=== PATIENT | male | born 1965 | race Caucasian/White ===

== ENCOUNTER 2021-05-24 13:13 | Inpatient (IN) | payer MEDICAID, OTHER ==
[~2021-05-24] VITALS: Ht 175.3 cm; Wt 88.9 kg
[~2021-05-24 13:13] MED LIST: HTN MEDS
[2021-05-24] MEDS ORDERED: KETOROLAC 30MG/ML VIAL IV STA (14:56)
[2021-05-24] MEDS ORDERED: DIPHENHYDRAMINE 50MG/ML VIAL IV ONE (15:00)
[2021-05-24] MEDS ORDERED: SODIUM CHLORIDE 0.9% 1,000 ML IV ONE (15:00)
[2021-05-24 15:14] LABS: CHLORIDE 106 mEq/L (98-107)
[2021-05-24 15:17] LABS: BASOPHILS % 0.9 % (0.0-2.0); HEMATOCRIT. 45.3 % (42.0-52.0); HEMOGLOBIN. 14.9 g/dL (14.0-18.0); LYMPHOCYTES % 25.1 % (20.0-50.0); MEAN CORPUSCULAR HEMOGLOBIN 29.5 pg (28.0-32.0); MEAN CORPUSCULAR VOLUME 89.3 fL (80.0-94.0); PLATELET 350 x1000/uL (130-400); RED BLOOD CELL COUNT 5.07 mill/uL (4.7-6.1); RED CELL DISTRIBUTION WIDTH 15.1 % (11.6-14.6)
[2021-05-24] MEDS ORDERED: HYDROCODONE/ACETAMINOPHEN 10/325MG TABLET PO ONE (17:00)
[2021-05-24] MEDS ORDERED: ASPIRIN 81MG TABLET PO ONE (20:45)
[2021-05-24] MEDS ORDERED: IPRATROPIUM/ALBUTEROL 0.5-3(2.5)MG/3ML NEB NEB PRN (21:00)
[2021-05-24] MEDS ORDERED: NITROGLYCERIN 0.4MG TABLET SL SL PRN (21:00)
[2021-05-24] MEDS ORDERED: MAGNESIUM/ALUMINUM HYDROXIDE/SIMETHICONE 30ML UDC PO PRN (21:00)
[2021-05-24] MEDS ORDERED: ACETAMINOPHEN 325MG TABLET PO PRN (21:00)
[2021-05-24] MEDS ORDERED: DOCUSATE SODIUM 100MG CAPSULE PO PRN (21:00)
[2021-05-24] MEDS ORDERED: ONDANSETRON HCL 4MG/2ML INJ IV PRN (21:00)
[2021-05-24] MEDS ORDERED: GUAIFENESIN 200MG/10ML SUGAR FREE UDC PO PRN (21:00)
[2021-05-24 21:17] LABS: ETHANOL BLOOD < 10 mg/dL
[2021-05-24 21:18] LABS: TOTAL IRON BINDING CAPACITY 319 ug/dL (250-450)
[2021-05-24 21:19] LABS: LDL CHOLESTEROL 118 mg/dL (5-100)
[2021-05-24 21:21] LABS: HDL CHOLESTEROL 39 mg/dL (40-59)
[2021-05-24] MEDS: ENOXAPARIN 40MG/0.4ML SYR SUBCUT SCH (21:33)
[2021-05-24] MEDS: FAMOTIDINE 20MG TABLET PO SCH (21:33)
[2021-05-24] MEDS: KETOROLAC 15MG/ML VIAL IV PRN (21:34)
[2021-05-24] MEDS: CLONIDINE 0.1MG TABLET PO PRN ×2 (21:34→23:17)
[2021-05-24 23:00] VITALS: BP 141/105
[2021-05-24] MEDS: ZOLPIDEM TARTRATE 5MG TABLET PO PRN (23:18)
[2021-05-24 23:46] VITALS: BP 161/89
[2021-05-25] VITALS: BP 138/77
[2021-05-25] MEDS ORDERED: KEPP500 MT (00:19)
[2021-05-25] MEDS ORDERED: AMLO10TA80 MT (00:20)
[2021-05-25 00:42] LABS: CREATINE KINASE 51 IU/L (39-308)
[2021-05-25 00:43] LABS: CREATINE KINASE MB FRACTION < 1.0 ng/mL (0.5-3.6)
[2021-05-25 04:00] VITALS: BP 135/84
[2021-05-25] MEDS: KETOROLAC 15MG/ML VIAL IV PRN ×3 (04:53→20:21)
[2021-05-25 07:17] LABS: BASOPHILS % 0.8 % (0.0-2.0); EOSINOPHILS % 1.8 % (0.0-5.0); HEMATOCRIT. 42.3 % (42.0-52.0); HEMOGLOBIN. 13.9 g/dL (14.0-18.0); LYMPHOCYTES % 39.9 % (20.0-50.0); MEAN CORPUSCULAR HEMOGLOBIN 29.6 pg (28.0-32.0); MEAN CORPUSCULAR VOLUME 89.9 fL (80.0-94.0); MEAN PLATELET VOLUME 7.8 fl (7.4-10.4); MONOCYTES % 11.4 % (2.0-8.0); NEUTROPHILS % 46.1 % (40.0-76.0); PLATELET 298 x1000/uL (130-400); RED CELL DISTRIBUTION WIDTH 14.8 % (11.6-14.6)
[2021-05-25 07:49] LABS: CHLORIDE 107 mEq/L (98-107)
[2021-05-25 07:56] LABS: PHOSPHORUS 4.3 mg/dL (2.5-4.9)
[2021-05-25 07:58] LABS: CREATINE KINASE 59 IU/L (39-308)
[2021-05-25 08:00] VITALS: BP 160/107
[2021-05-25 08:01] LABS: CREATINE KINASE MB FRACTION < 1.0 ng/mL (0.5-3.6)
[2021-05-25] MEDS: AMLODIPINE 10MG TABLET PO SCH (08:22)
[2021-05-25] MEDS: LEVETIRACETAM 500MG TABLET PO SCH ×2 (08:22→20:04)
[2021-05-25] MEDS: CLONIDINE 0.1MG TABLET PO PRN (08:22)
[2021-05-25] MEDS: FAMOTIDINE 20MG TABLET PO SCH ×2 (08:22→20:04)
[2021-05-25] MEDS ORDERED: ASPIRIN 325MG EC TABLET PO SCH (09:00)
[2021-05-25] MEDS ORDERED: NITROGLYCERIN SPRAY/4.9GM CAN TL ONE (11:15)
[2021-05-25 12:00] VITALS: BP 143/83
[2021-05-25] MEDS: CLOPIDOGREL 75MG TABLET PO SCH (14:20)
[2021-05-25] MEDS: ISOSORBIDE MONONITRATE 30MG TABLET SR 24HR PO SCH (15:32)
[2021-05-25 16:08] VITALS: BP 121/75
[2021-05-25] MEDS ORDERED: IOHEXOL-350 100 ML BOTTLE ONE (17:26)
[2021-05-25] MEDS: ACETAMINOPHEN 325MG TABLET PO PRN (18:11)
[2021-05-25 20:00] VITALS: BP 119/75
[2021-05-25] MEDS: ATORVASTATIN CALCIUM 40MG TABLET PO SCH (20:04)
[2021-05-25] MEDS: ENOXAPARIN 40MG/0.4ML SYR SUBCUT SCH (20:05)
[2021-05-26] VITALS: BP 113/71
[2021-05-26 04:00] VITALS: BP 110/63
[2021-05-26] MEDS: KETOROLAC 15MG/ML VIAL IV PRN (04:47)
[2021-05-26 08:00] VITALS: BP 108/75
[2021-05-26] MEDS: AMLODIPINE 10MG TABLET PO SCH (09:00)
[2021-05-26] MEDS: ISOSORBIDE MONONITRATE 30MG TABLET SR 24HR PO SCH (09:00)
[2021-05-26] MEDS: ACETAMINOPHEN 325MG TABLET PO PRN (09:30)
[2021-05-26] MEDS: FAMOTIDINE 20MG TABLET PO SCH ×2 (09:30→20:52)
[2021-05-26] MEDS: CLOPIDOGREL 75MG TABLET PO SCH (09:30)
[2021-05-26] MEDS: ASPIRIN 81MG EC TABLET PO SCH (09:30)
[2021-05-26] MEDS: LEVETIRACETAM 500MG TABLET PO SCH ×2 (09:30→20:52)
[2021-05-26 12:00] VITALS: BP 131/65
[2021-05-26] MEDS: BUTALBITAL/ACETAMINOPHEN/CAFFEINE 50/325/40MG TABLET PO PRN ×2 (13:07→20:52)
[2021-05-26 16:00] VITALS: BP 131/75
[2021-05-26 20:00] VITALS: BP 165/92
[2021-05-26] MEDS: ZOLPIDEM TARTRATE 5MG TABLET PO PRN (20:52)
[2021-05-26] MEDS: CLONIDINE 0.1MG TABLET PO PRN (20:52)
[2021-05-26] MEDS: ATORVASTATIN CALCIUM 40MG TABLET PO SCH (20:52)
[2021-05-26] MEDS: ENOXAPARIN 40MG/0.4ML SYR SUBCUT SCH (22:38)
[2021-05-27] VITALS: BP 126/84
[2021-05-27 04:00] VITALS: BP 140/81
[2021-05-27 08:00] VITALS: BP 144/77
[2021-05-27] MEDS: ASPIRIN 81MG EC TABLET PO SCH (09:01)
[2021-05-27] MEDS: FAMOTIDINE 20MG TABLET PO SCH ×2 (09:01→20:38)
[2021-05-27] MEDS: LEVETIRACETAM 500MG TABLET PO SCH ×2 (09:02→20:38)
[2021-05-27] MEDS: ISOSORBIDE MONONITRATE 30MG TABLET SR 24HR PO SCH (09:02)
[2021-05-27] MEDS: AMLODIPINE 10MG TABLET PO SCH (09:03)
[2021-05-27] MEDS: CLOPIDOGREL 75MG TABLET PO SCH (09:03)
[2021-05-27] MEDS: KETOROLAC 15MG/ML VIAL IV PRN ×2 (09:07→20:39)
[2021-05-27] MEDS: BUTALBITAL/ACETAMINOPHEN/CAFFEINE 50/325/40MG TABLET PO PRN ×2 (09:29→16:47)
[2021-05-27 12:00] VITALS: BP 138/75
[2021-05-27 16:00] VITALS: BP 93/64
[2021-05-27 20:00] VITALS: BP 124/82
[2021-05-27] MEDS: ATORVASTATIN CALCIUM 40MG TABLET PO SCH (20:38)
[2021-05-27] MEDS: ENOXAPARIN 30MG/0.3ML SYR SUBCUT SCH (20:38)
[2021-05-28] VITALS (11 sets, daily range): BP systolic 116–178; BP diastolic 58–91
[2021-05-28] MEDS ORDERED: HEPARIN SODIUM 1,000 UNIT/1ML VIAL IV ONE (08:35)
[2021-05-28] MEDS ORDERED: NICARDIPINE 100MCG/ML 10ML VIAL (CATH LAB) IV ONE (08:35)
[2021-05-28] MEDS ORDERED: NITROGLYCERIN 50MCG/ML 10ML VIAL (CATH LAB) IV ONE (08:35)
[2021-05-28] MEDS: ENOXAPARIN 30MG/0.3ML SYR SUBCUT SCH ×2 (09:00→20:37)
[2021-05-28] MEDS: ASPIRIN 81MG EC TABLET PO SCH (09:28)
[2021-05-28] MEDS: CLOPIDOGREL 75MG TABLET PO SCH (09:28)
[2021-05-28] MEDS: LEVETIRACETAM 500MG TABLET PO SCH ×2 (09:28→20:36)
[2021-05-28] MEDS: AMLODIPINE 10MG TABLET PO SCH (09:29)
[2021-05-28] MEDS: FAMOTIDINE 20MG TABLET PO SCH ×2 (09:30→20:36)
[2021-05-28] MEDS: ISOSORBIDE MONONITRATE 30MG TABLET SR 24HR PO SCH (09:30)
[2021-05-28] MEDS: KETOROLAC 15MG/ML VIAL IV PRN ×2 (09:33→16:30)
[2021-05-28] MEDS: BUTALBITAL/ACETAMINOPHEN/CAFFEINE 50/325/40MG TABLET PO PRN ×2 (09:43→18:19)
[2021-05-28] MEDS ORDERED: VERAPAMIL HCL 2.5 MG/1 ML 2ML VIAL IV ONE (10:31)
[2021-05-28] MEDS ORDERED: LIDOCAINE HCL 1% 30ML VIAL (10MG/ML) ONE (10:31)
[2021-05-28] MEDS ORDERED: IODIXANOL 320MG/ML 100 ML BOTTLE IV ONE (10:31)
[2021-05-28] MEDS ORDERED: MIDAZOLAM HCL 2 MG/2 ML VIAL ONE (10:42)
[2021-05-28] MEDS ORDERED: FENTANYL CITRATE/PF 50MCG/ML 2ML VIAL ONE (10:42)
[2021-05-28] MEDS ORDERED: IOHEXOL-300 100 ML BOTTLE ONE (11:27)
[2021-05-28] MEDS ORDERED: CLOPIDOGREL 75MG TABLET ONE (11:48)
[2021-05-28] MEDS ORDERED: ACETAMINOPHEN 325MG TABLET PO PRN (12:30)
[2021-05-28] MEDS ORDERED: ATROPINE SULFATE 1MG/10ML SYR IV PRN (12:30)
[2021-05-28] MEDS: SODIUM CHLORIDE 0.45% 250 ML IV SCH ×2 (13:00→15:00)
[2021-05-28] MEDS: ATORVASTATIN CALCIUM 40MG TABLET PO SCH (20:36)
[2021-05-29] VITALS (8 sets, daily range): BP systolic 110–153; BP diastolic 62–97
[2021-05-29] MEDS: BUTALBITAL/ACETAMINOPHEN/CAFFEINE 50/325/40MG TABLET PO PRN (01:04)
[2021-05-29] MEDS: KETOROLAC 15MG/ML VIAL IV PRN (03:21)
[2021-05-29 07:06] LABS: BASOPHILS % 0.8 % (0.0-2.0); EOSINOPHILS % 1.9 % (0.0-5.0); HEMATOCRIT. 42.8 % (42.0-52.0); HEMOGLOBIN. 14.4 g/dL (14.0-18.0); LYMPHOCYTES % 27.3 % (20.0-50.0); MEAN CORPUSCULAR HEMOGLOBIN 29.7 pg (28.0-32.0); MEAN CORPUSCULAR VOLUME 88.3 fL (80.0-94.0); MEAN PLATELET VOLUME 7.9 fl (7.4-10.4); MONOCYTES % 12.7 % (2.0-8.0); NEUTROPHILS % 57.3 % (40.0-76.0); PLATELET 319 x1000/uL (130-400); RED BLOOD CELL COUNT 4.85 mill/uL (4.7-6.1); RED CELL DISTRIBUTION WIDTH 14.6 % (11.6-14.6)
[2021-05-29 07:51] LABS: CHLORIDE 107 mEq/L (98-107)
[2021-05-29] MEDS: ASPIRIN 81MG EC TABLET PO SCH (08:24)
[2021-05-29] MEDS: FAMOTIDINE 20MG TABLET PO SCH (08:24)
[2021-05-29] MEDS: CLOPIDOGREL 75MG TABLET PO SCH (08:24)
[2021-05-29] MEDS: ENOXAPARIN 30MG/0.3ML SYR SUBCUT SCH (08:24)
[2021-05-29] MEDS: LEVETIRACETAM 500MG TABLET PO SCH (08:24)
[2021-05-29] MEDS: AMLODIPINE 10MG TABLET PO SCH (08:24)
[2021-05-29] MEDS: ISOSORBIDE MONONITRATE 30MG TABLET SR 24HR PO SCH (08:26)
== END 2021-05-29 10:45 | disposition home or self-care (01) | DRG 175 ==
LOC: ER 13:13 → 7EST 20:38 → ENRESERV 20:52 → 3WST 05-28 12:05
PROVIDERS: ADMIT Internal Medicine; ATTEND Internal Medicine
PROC: 02703ZZ Dilation of Coronary Artery, One Artery, Percutaneous Approach (ICD-10-PCS; principal; 2021-05-28)
PROC: 4A023N7 Measurement of Cardiac Sampling and Pressure, Left Heart, Percutaneous Approach (ICD-10-PCS; 2021-05-28)
PROC: B211YZZ Fluoroscopy of Multiple Coronary Arteries using Other Contrast (ICD-10-PCS; 2021-05-28)
DX: I25.110 Atherosclerotic heart disease of native coronary artery with unstable angina pectoris (principal); I69.954 Hemiplegia and hemiparesis following unspecified cerebrovascular disease affecting left non-dominant side; E78.5 Hyperlipidemia, unspecified; G40.909 Epilepsy, unspecified, not intractable, without status epilepticus; I10 Essential (primary) hypertension; Z20.822 Contact with and (suspected) exposure to COVID-19; J44.9 Chronic obstructive pulmonary disease, unspecified; Z95.5 Presence of coronary angioplasty implant and graft; Z79.899 Other long term (current) drug therapy; R00.1 Bradycardia, unspecified; R42 Dizziness and giddiness
CPT/HCPCS: 36415; 70551; 71045; 75571; 80048; 80053; 80061; 80320; 82550; 82553; 82607; 82746; 83036; 83540; 83550; 83735; 83880; 84100; 84484; 85025; 85347; 87426; 92920; 93005; 93306; 93458; 93970; 99285; C1769; C1887; C1893; J1200; J1644; J1650; J1885; J2250; J3010; J3490; Q9967; C1725; G0480

== ENCOUNTER 2022-02-22 08:51 | Inpatient (IN) | payer MEDICAID ==
[~2022-02-22] VITALS: Ht 177.8 cm; Wt 93.9 kg
[~2022-02-22 08:51] MED LIST changes: +AMLO10TA80 MT; +KEPP500 MT
[2022-02-22] MEDS ORDERED: LABETALOL 5MG/ML SYR 20 MG/4 ML SYRINGE IV ONE ×2 (09:00)
[2022-02-22] MEDS ORDERED: IOHEXOL-350 100 ML BOTTLE ONE (09:11)
[2022-02-22 09:55] LABS: CLARITY URINE CLEAR (CLEAR); COLOR URINE DARK YELLOW (YELLOW); KETONES URINE NEGATIVE (NEGATIVE); LEUKOCYTE ESTERASE URINE NEGATIVE (NEGATIVE); NITRITE URINE NEGATIVE (NEGATIVE); OCCULT BLOOD URINE NEGATIVE (NEGATIVE); PH URINE 5.5 (4.5-8.0); PROTEIN URINE NEGATIVE (NEGATIVE); SPECIFIC GRAVITY URINE 1.062 (1.005-1.030); UROBILINOGEN URINE 0.2 E.U./dL (0.2-1.0)
[2022-02-22 10:04] LABS: BASOPHILS % 0.6 % (0.0-2.0); EOSINOPHILS % 1.6 % (0.0-5.0); HEMATOCRIT. 39.8 % (42.0-52.0); HEMOGLOBIN. 13.5 g/dL (14.0-18.0); LYMPHOCYTES % 21.5 % (20.0-50.0); MEAN CORPUSCULAR HEMOGLOBIN 30.2 pg (28.0-32.0); MEAN CORPUSCULAR VOLUME 89.2 fL (80.0-94.0); MEAN PLATELET VOLUME 7.8 fl (7.4-10.4); MONOCYTES % 8.3 % (2.0-8.0); PLATELET 284 x1000/uL (130-400); RED BLOOD CELL COUNT 4.46 mill/uL (4.7-6.1); RED CELL DISTRIBUTION WIDTH 14.6 % (11.6-14.6)
[2022-02-22 10:10] LABS: CHLORIDE 106 mEq/L (98-107)
[2022-02-22 10:13] LABS: PROTHROMBIN TIME 10.4 sec (9.6-11.0)
[2022-02-22 10:21] LABS: CREATINE KINASE 163 IU/L (39-308); ETHANOL BLOOD < 10 mg/dL; LDL CHOLESTEROL 89 mg/dL (5-100)
[2022-02-22 10:30] LABS: *AMPHETAMINES SCREEN URINE NEGATIVE (NEGATIVE); *BARBITURATES SCREEN URINE NEGATIVE (NEGATIVE); *BENZODIAZEPINES SCREEN URINE NEGATIVE (NEGATIVE); *COCAINE SCREEN URINE NEGATIVE (NEGATIVE); CANNABINOID URINE SCREEN PRESUMTIVE POSITIVE (NEGATIVE); METHADONE URINE SCREEN NEGATIVE (NEGATIVE); OPIATES URINE SCREEN NEGATIVE (NEGATIVE); PHENCYCLIDINE URINE SCREEN NEGATIVE (NEGATIVE)
[2022-02-22] MEDS ORDERED: CLONIDINE 0.1MG TABLET PO PRN (10:45)
[2022-02-22] MEDS ORDERED: DOCUSATE SODIUM 100MG CAPSULE PO PRN (10:45)
[2022-02-22] MEDS ORDERED: DIPHENHYDRAMINE 50MG/ML VIAL IV PRN (10:45)
[2022-02-22] MEDS ORDERED: NITROGLYCERIN 0.4MG TABLET SL SL PRN ×2 (10:45→16:00)
[2022-02-22] MEDS ORDERED: MORPHINE SULFATE 2 MG/ML CPJ (NOT FOR IM USE) IV PRN (10:45)
[2022-02-22] MEDS ORDERED: ACETAMINOPHEN 325MG TABLET PO PRN (10:45)
[2022-02-22] MEDS ORDERED: MAGNESIUM/ALUMINUM HYDROXIDE/SIMETHICONE 30ML UDC PO PRN (10:45)
[2022-02-22] MEDS ORDERED: GUAIFENESIN 200MG/10ML SUGAR FREE UDC PO PRN (10:45)
[2022-02-22] MEDS ORDERED: NA PHOS,M-B/NA PHOS,DI-BA ENEMA 118ML PR PRN (10:45)
[2022-02-22] MEDS ORDERED: IPRATROPIUM/ALBUTEROL 0.5-3(2.5)MG/3ML NEB NEB PRN (10:45)
[2022-02-22] MEDS ORDERED: NALOXONE HCL 0.4MG/ML VIAL IV PRN (11:00)
[2022-02-22] MEDS: ASPIRIN 81MG EC TABLET PO SCH (11:07)
[2022-02-22] MEDS: MORPHINE SULFATE 2 MG/ML CPJ (NOT FOR IM USE) IV PRN ×2 (11:08→20:44)
[2022-02-22] MEDS: SODIUM CHLORIDE 0.45% 1,000 ML IV SCH (11:08)
[2022-02-22 12:44] VITALS: BP 158/89
[2022-02-22] MEDS ORDERED: METO25TA6 PO (12:57)
[2022-02-22] MEDS ORDERED: LEVO50TA8 PO (12:57)
[2022-02-22] MEDS ORDERED: CLOP75TA33 PO (12:57)
[2022-02-22] MEDS ORDERED: AMLO5TAB88 PO (12:57)
[2022-02-22] MEDS ORDERED: ACET-2708 PO (12:57)
[2022-02-22] MEDS ORDERED: NITR0.4T49 SL (12:58)
[2022-02-22] MEDS ORDERED: ATOR-2 PO (12:58)
[2022-02-22] MEDS ORDERED: ASPI-1497 PO (13:00)
[2022-02-22] MEDS: HYDROCODONE/ACETAMINOPHEN 5/325MG TABLET PO PRN (15:05)
[2022-02-22 16:00] VITALS: BP 161/75
[2022-02-22] MEDS: ISOSORBIDE DINITRATE 10MG TABLET PO SCH (17:23)
[2022-02-22 18:00] VITALS: BP 142/83
[2022-02-22 20:00] VITALS: BP 127/88
[2022-02-22 22:00] VITALS: BP 124/82
[2022-02-22] MEDS: ONDANSETRON HCL 4MG/2ML INJ IV PRN (23:04)
[2022-02-23] VITALS (13 sets, daily range): BP systolic 117–158; BP diastolic 69–98
[2022-02-23] MEDS: SODIUM CHLORIDE 0.45% 1,000 ML IV SCH ×2 (03:27→12:23)
[2022-02-23 05:31] LABS: EOSINOPHILS % 2.9 % (0.0-5.0); HEMATOCRIT. 38.8 % (42.0-52.0); HEMOGLOBIN. 13.1 g/dL (14.0-18.0); LYMPHOCYTES % 32.6 % (20.0-50.0); MEAN CORPUSCULAR HEMOGLOBIN 29.9 pg (28.0-32.0); MEAN CORPUSCULAR VOLUME 88.5 fL (80.0-94.0); MONOCYTES % 10.3 % (2.0-8.0); NEUTROPHILS % 53.2 % (40.0-76.0); PLATELET 260 x1000/uL (130-400); RED BLOOD CELL COUNT 4.38 mill/uL (4.7-6.1); RED CELL DISTRIBUTION WIDTH 14.6 % (11.6-14.6)
[2022-02-23 06:03] LABS: CHLORIDE 106 mEq/L (98-107)
[2022-02-23] MEDS: ASPIRIN 81MG EC TABLET PO SCH (08:52)
[2022-02-23] MEDS: ISOSORBIDE DINITRATE 10MG TABLET PO SCH ×3 (08:52→18:55)
[2022-02-23] MEDS: HYDROCODONE/ACETAMINOPHEN 5/325MG TABLET PO PRN ×2 (08:58→18:59)
[2022-02-23] MEDS: MORPHINE SULFATE 2 MG/ML CPJ (NOT FOR IM USE) IV PRN ×2 (12:18→20:54)
[2022-02-23] MEDS: ONDANSETRON HCL 4MG/2ML INJ IV PRN (20:53)
[2022-02-24] VITALS (10 sets, daily range): BP systolic 121–168; BP diastolic 68–95
[2022-02-24] MEDS ORDERED: IBUPROFEN 600MG TABLET PO PRN
[2022-02-24] MEDS: ISOSORBIDE DINITRATE 10MG TABLET PO SCH ×3 (09:18→17:33)
[2022-02-24] MEDS: ASPIRIN 81MG EC TABLET PO SCH (09:18)
[2022-02-24] MEDS: MORPHINE SULFATE 2 MG/ML CPJ (NOT FOR IM USE) IV PRN ×2 (11:23→19:55)
[2022-02-24] MEDS: ONDANSETRON HCL 4MG/2ML INJ IV PRN (11:46)
[2022-02-24] MEDS: SODIUM CHLORIDE 0.45% 1,000 ML IV SCH (12:45)
[2022-02-24] MEDS: HYDROCODONE/ACETAMINOPHEN 5/325MG TABLET PO PRN (15:06)
[2022-02-25] VITALS (9 sets, daily range): BP systolic 113–142; BP diastolic 68–108
[2022-02-25] MEDS: ONDANSETRON HCL 4MG/2ML INJ IV PRN (01:29)
[2022-02-25] MEDS: SODIUM CHLORIDE 0.45% 1,000 ML IV SCH (05:11)
[2022-02-25] MEDS: ASPIRIN 81MG EC TABLET PO SCH (09:00)
[2022-02-25] MEDS: ISOSORBIDE DINITRATE 10MG TABLET PO SCH ×2 (09:00→14:07)
[2022-02-25] MEDS: MORPHINE SULFATE 2 MG/ML CPJ (NOT FOR IM USE) IV PRN (11:02)
== END 2022-02-25 15:30 | disposition home or self-care (01) | DRG 47 ==
LOC: ER 08:51 → 5EST 10:17 → EDBEDREQ 10:25 → EDBEDREQTM 10:25 → ENRESERV 12:00
PROVIDERS: ADMIT Internal Medicine; ATTEND Internal Medicine
DX: G45.9 Transient cerebral ischemic attack, unspecified (principal); G93.41 Metabolic encephalopathy; I16.0 Hypertensive urgency; E78.5 Hyperlipidemia, unspecified; I25.10 Atherosclerotic heart disease of native coronary artery without angina pectoris; I10 Essential (primary) hypertension; E03.9 Hypothyroidism, unspecified; R29.810 Facial weakness; M17.12 Unilateral primary osteoarthritis, left knee; R56.9 Unspecified convulsions; I69.354 Hemiplegia and hemiparesis following cerebral infarction affecting left non-dominant side; Z87.891 Personal history of nicotine dependence; Z79.899 Other long term (current) drug therapy; Z79.02 Long term (current) use of antithrombotics/antiplatelets; Z79.82 Long term (current) use of aspirin; Z95.5 Presence of coronary angioplasty implant and graft; Z82.49 Family history of ischemic heart disease and other diseases of the circulatory system
CPT/HCPCS: 36415; 70496; 70498; 70551; 71045; 80053; 80061; 80305; 80320; 81003; 82550; 83721; 84484; 85025; 93005; 93306; 93970; 95816; 97161; 97162; 97165; 99291; J2270; J2405; J3490; Q9967; G0480